=== PATIENT | male | born 1930 | race Caucasian/White ===

== ENCOUNTER 2016-06-12 10:58 | Emergency (ER) | payer OTHER ==
[~2016-06-12] VITALS: Ht 175.3 cm; Wt 71.8 kg
[~2016-06-12 10:58] MED LIST: ATOR10TA PO; CIPR500T4 PO; COUM3TAB PO; MACR100C PO; OMEP20TA39 PO; PHEN-426 PO
[2016-06-12 11:10] VITALS: BP 132/77; PULSE 63; RESP 16; TEMP 97.8; O2SAT 97
--- NOTE | 2016-06-12 11:28 | PD ---
HPI Chief Complaint: Laceration/Skin Injury Time Seen by Provider: 11:25 Travel History International Travel<30 days: No Contact w/Intl Traveler<30days: No Traveled to known affect area: No History of Present Illness HPI Patient comes emergency Department for evaluation of a laceration to his left third finger that occurred shortly prior to arrival. Patient states that he smashed it trying to change a belt on a lawnmower. Patient reports tetanus shot is up-to-date. Patient applied pressure prior to coming emergency department. Patient does report being on Coumadin. Patient reports minimal tenderness around the site of the laceration without radiation. Denies anything making it better or worse. PFSH Past Medical History Hx Anticoagulant Therapy: Yes (coumadin ) Arthritis: Yes (OSTEOARTHRITIS) Asthma: No Cardiac Catheterization: Yes (27 MAY 2007 *(DR LYNDON DOUGLAS)) Cardiovascular Problems: No High Cholesterol: Yes Chest Pain: Yes Congestive Heart Failure: No COPD: No Coronary Artery Disease: Yes Diminished Hearing: No Diverticulitis: Yes (2 BOUTS THIS YEAR) Gastrointestinal Disorders: Yes (DIVERTICULITIS, SCHATZKIS RING) GERD: Yes Genitourinary: Yes (UTI) Headaches: No Hypertension: Yes Musculoskeletal: No Neurologic: Yes (EPIDURAL HEMATOMA AT AGE 49) Reproductive: No Respiratory: Yes (2 COLLAPSED 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) Migraines: No Myocardial Infarction: Yes Seizures: No Ulcer: Yes (PEPTIC ULCER (DR MORAN)) Past Surgical History Abdominal Surgery: Yes (HERNIA REPAIR) Appendectomy: No Cardiac Surgery: Yes Cholecystectomy: No Coronary Artery Bypass Graft: Yes (28 MAY 2007 (DR SWARTZ) 4 vessel) Ear Surgery: No Endocrine Surgery: No Eye Surgery: No Genitourinary Surgery: No Gynecologic Surgery: No Hysterectomy: Yes (htn on meds, 4 vessels bypass) Neurologic Surgery: No Tonsillectomy: Yes Other Surgery: Yes (ESOPHAGEAL DILITATION WITH SCHOTZSKI'S RING (FOUND ALSO AN ULCER)) Social History Alcohol Use: No Tobacco Use: No Substance Use: No Allergies-Medications (Allergen,Severity, Reaction): Coded Allergies: Aspirin (Verified Allergy, Severe, PT REPORTS INTOLERANCE TO ASPIRIN, 06/12) 06/07/07: PER DARIUS PHAN, PT REPORTS INTOLERANCE TO ASPIRIN. Sulfa (Verified Allergy, Unknown, pt does not know why this is on his chart, 06/12/16) pt does not know why this is on his chart Reported Meds & Prescriptions Reported Meds & Active Scripts Active Reported Amlodipine (Amlodipine Besylate) 2.5 Mg Tab 2.5 Mg PO DAILY Atorvastatin (Atorvastatin Calcium) 80 Mg Tab 80 Mg PO HS Warfarin 3 Mg Tab 3 Mg PO DAILY Review of Systems Except as stated in HPI: all other systems reviewed are Neg Physical Exam Narrative GENERAL: Well-developed, well nourished, in no acute distress, and non-ill appearing. SKIN: Focused skin assessment warm and dry. Laceration left third finger palmar surface distal phalanx. No obvious foreign body noted. Neurovascularly intact distally. HEAD: Atraumatic. Normocephalic. EYES: Pupils equal and round. EOMI. No scleral icterus. No injection or drainage. ENT: No nasal bleeding or discharge. Mucous membranes pink and moist. NECK: Trachea midline. Supple. No nuclear rigidity. RESPIRATORY: No accessory muscle use. No respiratory distress. MUSCULOSKELETAL: No obvious deformities. No clubbing. No cyanosis. No edema. Full range of motion. NEUROLOGICAL: Awake and alert. No obvious cranial nerve deficits. Motor grossly within normal limits. Normal speech. PSYCHIATRIC: Appropriate mood and affect; insight and judgment normal. Data Data Last Documented VS Vital Signs Date Time Temp Pulse Resp B/P Pulse Ox O2 Delivery O2 Flow Rate FiO2 06/12/16 11:10 97.8 63 16 132/77 97 Orders Bupivacaine Pf 0.5% Inj (Marcaine Pf 0.5 (06/12/16 11:30) Finger ([id number]) (06/12/16 ) [facility] Medical Decision Making Medical Screen Exam Complete: Yes Emergency Medical Condition: Yes Differential Diagnosis Fracture, contusion, laceration, abrasion, other Narrative Course The patient suffered laceration to the finger. There was no evidence to suggest foreign bodies. Visual, tactile and radiographic exams were unremarkable without evidence of foreign body at this time. There was no evidence of neurovascular injury. The patient had a normal distal vascular exam, and had full normal motor and sensory exams. There was also no evidence or tendon injury , with normal distal full range of motions, flexion, extension, abduction, adduction and opponens. There was no evidence of local joint space involvement at this time. The patient was irrigated with copious sterile normal saline and primary repair was performed. Please see procedure note. The patient was given signs and symptom warnings for infection, such as increasing pain, redness, swelling, associated heat, pus or fever. The patient was warned of possible unseen foreign body and instructed to return immediately if signs or symptoms develop. The patient was given instructions for timely follow up. The patient agreed with plan of care. Patient in no obvious distress upon re-evaluation. All pertinent Radiology result(s) discussed with patient. Any questions/concerns in reference to patient diagnosis/condition discussed and clarified prior to patient's discharge. Reinforced sheer importance of close follow up with patient's primary physician or primary care clinic. Instructed patient to return to ED immediately, if symptoms return/worsen. Pt showed understanding of above instructions. Further instructions and recommendations were detailed in discharge paperwork. Pt ambulated without difficulty out of ED at discharge. Procedures Procedure Narrative LACERATION REPAIR LOCATION: Left third finger distal phalanx palmar surface LENGTH: Approximately next to some additional length NUMBER OF STITCHES/ARELY: 6 REPAIR: Verbal consent was obtained. The area of the laceration was cleaned and prepped. Digital block was performed using Marcaine without epi. The wound was copiously irrigated and explored without evidence of foreign body, bony involvement, ligament injury, tendon injury, or neurovascular injury. The wound was closed using 5-0 Vicryl. This was a single layer repair. A sterile dressing was applied by nurse. The patient was advised to keep the affected area as clean and dry as possible using soap and water. There were no complications. Patient tolerated the procedure well. Diagnosis Primary Impression: Laceration of finger of left hand Qualified Code: S61.219A - Laceration of finger of left hand, initial encounter Patient Instructions: Care For Your Absorbable Stitches (ED), Finger Laceration (ED), General Instructions Additional Instructions: Follow-up with your primary care physician next week for reevaluation. Keep wound dry and clean as possible using soap and water. Do not soak or submerge wound. Return to the emergency department if symptoms get worse. Disposition: 01 DISCHARGE HOME Condition: Stable Petros Byrne Jun 12, 2016 11:28
[2016-06-12] MEDS ORDERED: BUPIVACAINE HCL PF 0.5% 10 ML VIAL INFIL ONE (11:30)
[2016-06-12] MEDS ORDERED: AMLO2.5T PO (11:51)
[2016-06-12] MEDS ORDERED: WARF-58 PO (11:51)
[2016-06-12] MEDS ORDERED: ATOR1TAB18 PO (11:51)
--- NOTE | 2016-06-12 11:54 | RADHPO ---
EXAM DATE/TIME: 06/12/2016 11:34 [facility] COMPARISON: No previous studies available for comparison. INDICATIONS : Laceration to left third digit. MEDICAL HISTORY : Osteoarthritis. Hypercholesterolemia. Diverticulitis. Hypertension. Pneumothorax post CABG. Ulcer SURGICAL HISTORY : Tonsillectomy. CABG. EGD. Cardiac catheterization. Hernia repair. ENCOUNTER: Initial ACUITY: 1 day PAIN SCORE: 8/10 LOCATION: Left hand/ third digit FINDINGS: AP, lateral and oblique views of the left third digit were obtained as well as an AP view of the hand . This demonstrates soft tissue swelling and overlying artifact from a bandage. Degenerative changes are present in the distal interphalangeal joint with space loss, sclerosis and spurring. No radiopaqu e foreign body is identified. CONCLUSION: 1. Soft tissue swelling and overlying artifact from bandages. There is no definite radiopaque foreign body. 2. Degenerative joint change in the distal interphalangeal joint. Gonzalo Feliciano MD on June 12, 2016 at 11:51 Board Certified Radiologist. This report was verified electronically.
== END 2016-06-12 12:10 | disposition home or self-care (01) ==
LOC: PHEFT 10:58
DX: S61.213A Laceration without foreign body of left middle finger without damage to nail, initial encounter (principal); I10 Essential (primary) hypertension; W31.89XA Contact with other specified machinery, initial encounter; Y93.H9 Activity, other involving exterior property and land maintenance, building and construction; Y92.009 Unspecified place in unspecified non-institutional (private) residence as the place of occurrence of the external cause; Z79.01 Long term (current) use of anticoagulants
CPT/HCPCS: 12001; 73140

== ENCOUNTER 2016-11-02 10:32 | Emergency (ER) | payer OTHER ==
[~2016-11-02] VITALS: Ht 172.7 cm; Wt 70.0 kg
[~2016-11-02 10:32] MED LIST changes: +AMLO2.5T PO; -ATOR10TA PO; +ATOR1TAB18 PO; -CIPR500T4 PO; -COUM3TAB PO; -MACR100C PO; -OMEP20TA39 PO; -PHEN-426 PO; +WARF-58 PO
[2016-11-02 10:42] VITALS: BP 142/65; PULSE 87; RESP 16; TEMP 97.6; O2SAT 99
[2016-11-02] MEDS ORDERED: TAMS0.4C4 PO (11:00)
[2016-11-02] MEDS ORDERED: BECL0.07 INH (11:00)
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
[2016-11-02 11:32] LABS: BLOOD, URINE MOD (NEG); GLUCOSE,URINE NEG (NEG); KETONE, URINE NEG (NEG); NITRITE,URINE POS (NEG); PH, URINE 5.5 (5.0-8.5)
[2016-11-02 11:35] LABS: AUTOMATED NEUTROPHIL # 17.5 TH/MM3 (1.8-7.7); EOSINOPHIL % 0.2 % (0.0-4.0); HEMATOCRIT 39.2 % (39.0-51.0); LYMPH % 2.3 % (9.0-44.0); LYMPHOCYTE # 0.4 TH/MM3 (1.0-4.8); MEAN CELL VOLUME 89.3 FL (80.0-100.0); MEAN CORPUSCULAR HEMOGLOBIN 30.5 PG (27.0-34.0); MEAN CORPUSCULAR HGB CONC 34.1 % (32.0-36.0); MONO % 5.7 % (0.0-8.0); NEUT % 91.8 % (16.0-70.0); PLATELET COUNT 136 TH/MM3 (150-450); RED BLOOD COUNT 4.39 MIL/MM3 (4.50-5.90)
[2016-11-02 11:38] LABS: METHOD OF COLLECTION CATH; URINE COLOR YELLOW (YELLW/STRAW)
[2016-11-02 11:39] LABS: BACTERIA, URINE MANY /hpf; COMMENT (UR) CULTURE INDICATED; CULTURE IF INDICATED CULTURE INDICATED; POTASSIUM 4.1 MEQ/L (3.5-5.1); RBC, URINE 0-3 /hpf (0-3)
[2016-11-02 11:42] LABS: HEMO FLAGS DIFF FINAL
[2016-11-02 11:43] LABS: INTERNATIONAL NORMALIZED RATIO 1.7 RATIO; PROTHROMBIN TIME - PATIENT 19.4 SEC (9.8-11.6)
[2016-11-02 11:44] LABS: BICARBONATE 26.5 MEQ/L (21.0-32.0)
[2016-11-02] MEDS ORDERED: cefTRIAXone INJ 1,000 MG in SODIUM CHLORIDE 0.9% INJ 100 ML IV ONE (11:45)
[2016-11-02 12:31] VITALS: BP 114/56; PULSE 76; O2SAT 99
[2016-11-02] MEDS ORDERED: CEPH-460 PO (13:09)
== END 2016-11-02 13:22 | disposition home or self-care (01) ==
LOC: PHED 10:32
DX: N39.0 Urinary tract infection, site not specified (principal); B96.89 Other specified bacterial agents as the cause of diseases classified elsewhere; D72.829 Elevated white blood cell count, unspecified; Z79.01 Long term (current) use of anticoagulants
CPT/HCPCS: 80048; 81001; 83605; 85025; 85610; 87077; 87086; 87186; 96365; 99284; J0696

== ENCOUNTER 2017-06-05 17:38 | Observation (INO) | payer OTHER ==
[~2017-06-05] VITALS: Ht 172.7 cm; Wt 72.0 kg
[~2017-06-05 17:38] MED LIST changes: -ATOR1TAB18 PO; +ATOR80TA45 PO; +BECL0.07 INH; +CEPH-460 PO; +TAMS0.4C4 PO
[2017-06-05 17:46] VITALS: BP 169/73; PULSE 50; RESP 16; TEMP 97.6; O2SAT 96
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
--- NOTE | 2017-06-05 18:28 | RADRPT ---
EXAM DATE/TIME: 06/05/2017 18:01 [facility] COMPARISON: CHEST SINGLE AP, July 25, 2014, 16:43. INDICATIONS : Shortness of breath. MEDICAL HISTORY : Hypertension. Chronic obstructive pulmonary disease. SURGICAL HISTORY : CABG. Carotid stent. ENCOUNTER: Initial ACUITY: 1 day PAIN SCORE: 1/10 LOCATION: Bilateral chest FINDINGS: The patient is status post sternotomy. The heart size is normal. There is mild increased density at t he bases. The upper and mid lungs are clear. A significant effusion is not seen. CONCLUSION: Bibasilar areas of consolidation or atelectasis. Jabier Bowie MD on June 05, 2017 at 18:25 Board Certified Radiologist. This report was verified electronically.
[2017-06-05 18:36] LABS: AUTOMATED NEUTROPHIL # 5.7 TH/MM3 (1.8-7.7); BASOPHIL % 0.5 % (0.0-2.0); EOSINOPHIL # 0.2 TH/MM3 (0-0.4); EOSINOPHIL % 3.1 % (0.0-4.0); HEMATOCRIT 39.1 % (39.0-51.0); HEMOGLOBIN 13.3 GM/DL (13.0-17.0); LYMPH % 14.9 % (9.0-44.0); LYMPHOCYTE # 1.1 TH/MM3 (1.0-4.8); MEAN CELL VOLUME 90.3 FL (80.0-100.0); MEAN CORPUSCULAR HEMOGLOBIN 30.8 PG (27.0-34.0); MEAN CORPUSCULAR HGB CONC 34.1 % (32.0-36.0); MEAN PLATELET VOLUME 8.1 FL (7.0-11.0); MONO % 7.5 % (0.0-8.0); MONOCYTE # 0.6 TH/MM3 (0-0.9); PLATELET COUNT 195 TH/MM3 (150-450); RED BLOOD COUNT 4.33 MIL/MM3 (4.50-5.90); RED CELL DISTRIBUTION WIDTH 15.6 % (11.6-17.2); WHITE BLOOD COUNT 7.7 TH/MM3 (4.0-11.0)
--- NOTE | 2017-06-05 18:46 | RADRPT ---
EXAM DATE/TIME: 06/05/2017 18:12 [facility] COMPARISON: CT BRAIN W/O CONTRAST, July 25, 2014, 16:10. INDICATIONS : Syncopal episode. RADIATION DOSE: 37.73 CTDIvol (mGy) MEDICAL HISTORY : Cardiovascular disease. Hypertension. prior epidural hematoma SURGICAL HISTORY : CABG ENCOUNTER: Initial ACUITY: 1 day PAIN SCALE: 0/10 LOCATION: cranial TECHNIQUE: Multiple contiguous axial images were obtained of the head. Using automated exposure control and adj ustment of the mA and/or kV according to patient size, radiation dose was kept as low as reasonably a chievable to obtain optimal diagnostic quality images. DICOM format image data is available electro nically for review and comparison. FINDINGS: CEREBRUM: The ventricles are normal for age. No evidence of midline shift, mass lesion, hemorrhage or acute in farction. No extra-axial fluid collections are seen. POSTERIOR FOSSA: The cerebellum and brainstem are intact. The 4th ventricle is midline. The cerebellopontine angle i s unremarkable. EXTRACRANIAL: The visualized portion of the orbits is intact. SKULL: The calvaria is intact. No evidence of skull fracture. CONCLUSION: No acute disease. Jabier Bowie MD on June 05, 2017 at 18:43 Board Certified Radiologist. This report was verified electronically.
[2017-06-05 18:49] LABS: INTERNATIONAL NORMALIZED RATIO 2.3 RATIO; PROTHROMBIN TIME - PATIENT 23.4 SEC (9.8-11.6)
[2017-06-05 18:52] LABS: ALBUMIN 3.9 GM/DL (3.4-5.0); AST (GOT) 26 U/L (15-37); BLOOD UREA NITROGEN 25 MG/DL (7-18); CALCIUM 8.8 MG/DL (8.5-10.1); CHLORIDE 104 MEQ/L (98-107); CREATININE 1.71 MG/DL (0.60-1.30); GLOMERULAR FILTRATION RATE 38 ML/MIN (>89); GLUCOSE,RANDOM 94 MG/DL (74-106); SODIUM (NA) 137 MEQ/L (136-145)
[2017-06-05 18:53] LABS: ALT (GPT) 30 U/L (12-78)
[2017-06-05 19:03] LABS: ALKALINE PHOSPHATASE 139 U/L (45-117); TOTAL BILIRUBIN ADULT 0.5 MG/DL (0.2-1.0); TOTAL PROTEIN 7.4 GM/DL (6.4-8.2); TROPONIN I LESS THAN 0.02 NG/ML (0.02-0.05)
--- NOTE | 2017-06-05 19:30 | PD ---
Physical Exam Narrative I, Dr. Cunningham, have reviewed the advance practice practitioner's documentation and am in agreement, met with the patient face to face, made the diagnosis, and the medical decision making was done by me. *My assessment and Findings: Near syncope vs. Vertigo vs. subclavian steal syndrome 87yo M with PMH of CAD s/p CABG, right carotid endarterectomy, right subclavian steal syndrome here with episode of dizziness while sitting down watching TV and rewinding tape. Pt said he felt like he was going to pass out but didnt and felt the room spinning. Had some nausea. Episode lasted a few minutes. Denies any focal weakness or numbness. Had 2 more episode within this month but did not seek medical attention. Pt is suppose to follow up with vascular Dr. العراقي. Labs reviewed, no leukocytosis. H/H normal. Troponin negative. BUN/creatinine mildly elevated at 25/1.71. CXR showed bibasilar areas of consolidation or atelectasis. CT brain negative. This may be vertigo but pt is no longer dizzy and unable to do HINTS test. Pt also has significant cardiac risk factor for near syncope work up. Data Data Last Documented VS Vital Signs Date Time Temp Pulse Resp B/P (MAP) Pulse Ox O2 Delivery O2 Flow Rate FiO2 06/05/17 19:32 60 16 171/77 (108) 60 16 171/73 (105) 65 16 195/82 (119) 06/05/17 17:46 96 Room Air 06/05/17 17:46 97.6 Orders Orders Electrocardiogram (06/05/17 17:57) Complete Blood Count With Diff (06/05/17 17:57) Comprehensive Metabolic Panel (06/05/17 17:57) Ckmb (Isoenzyme) Profile (06/05/17 17:57) Troponin I (06/05/17 17:57) Prothrombin Time / Inr (Pt) (06/05/17 17:57) Act Partial Throm Time (Ptt) (06/05/17 17:57) Magnesium (Mg) (06/05/17 17:57) Thyroid Stimulating Hormone (06/05/17 17:57) Chest, Single Ap (06/05/17 17:57) Ct Brain W/O Iv Contrast(Rout) (06/05/17 17:57) Iv Access Insert/Monitor (06/05/17 17:57) Ecg Monitoring (06/05/17 17:57) Oximetry (06/05/17 17:57) Orthostatic Vital Signs (06/05/17 17:57) Admit Order (Ed Use Only) (06/05/17 20:16) Place In Observation (06/05/17 ) Vital Signs (Adult) Q4H (06/05/17 20:15) Activity Oob With Assistance (06/05/17 20:15) Skip Loader / Telemetry .CONTINUOUS (06/05/17 20:15) Intake + Output ELIZABETH.QSHIFT (06/05/17 20:15) Diet Heart Healthy (06/06/17 Breakfast) Sodium Chlor 0.9% 1000 Ml Inj (Ns 1000 M (06/05/17 20:15) Sodium Chloride 0.9% Flush (Ns Flush) (06/05/17 20:15) Sodium Chloride 0.9% Flush (Ns Flush) (06/05/17 21:00) Ondansetron Inj (Zofran Inj) (06/05/17 20:15) Comprehensive Metabolic Panel (06/06/17 06:00) Complete Blood Count With Diff (06/06/17 06:00) Troponin I (06/06/17 00:00) Troponin I (06/06/17 06:00) Prothrombin Time / Inr (Pt) (06/06/17 06:00) Pt Request For Service (06/05/17 20:15) Case Management Consult (06/05/17 20:15) Pharmacologic Contraindication (06/05/17 20:15) Acetaminophen (Tylenol) (06/05/17 20:15) Acetamin-Hydrocod 325-5 Mg ([place] 5-325 (06/05/17 20:15) Acetamin-Hydrocod 325-10 Mg ([place] 10-32 (06/05/17 20:15) Docusate Sodium-Senna (Sophia-Colace) (06/05/17 21:00) Magnesium Hydroxide Liq (Milk Of Magnesi (06/05/17 20:15) Sennosides (Senokot) (06/05/17 20:15) Bisacodyl Supp (Dulcolax Supp) (06/05/17 20:15) Lactulose Liq (Lactulose Liq) (06/05/17 20:15) Amlodipine (Norvasc) (06/06/17 09:00) Atorvastatin (Lipitor) (06/05/17 21:00) Tamsulosin (Flomax) (06/05/17 21:00) Warfarin (Coumadin) (06/06/17 16:00) Pantoprazole (Protonix) (06/06/17 09:00) Us Carotid Arteries Comp Bilat (06/05/17 ) Meclizine (Antivert) (06/05/17 20:30) Labs Laboratory Tests Test 06/05/17 18:10 White Blood Count 7.7 TH/MM3 Red Blood Count 4.33 MIL/MM3 Hemoglobin 13.3 GM/DL Hematocrit 39.1 % Mean Corpuscular Volume 90.3 FL Mean Corpuscular Hemoglobin 30.8 PG Mean Corpuscular Hemoglobin Concent 34.1 % Red Cell Distribution Width 15.6 % Platelet Count 195 TH/MM3 Mean Platelet Volume 8.1 FL Neutrophils (%) (Auto) 74.0 % Lymphocytes (%) (Auto) 14.9 % Monocytes (%) (Auto) 7.5 % Eosinophils (%) (Auto) 3.1 % Basophils (%) (Auto) 0.5 % Neutrophils # (Auto) 5.7 TH/MM3 Lymphocytes # (Auto) 1.1 TH/MM3 Monocytes # (Auto) 0.6 TH/MM3 Eosinophils # (Auto) 0.2 TH/MM3 Basophils # (Auto) 0.0 TH/MM3 CBC Comment DIFF FINAL Differential Comment Prothrombin Time 23.4 SEC Prothromb Time International Ratio 2.3 RATIO Activated Partial Thromboplast Time 29.6 SEC Blood Urea Nitrogen 25 MG/DL Creatinine 1.71 MG/DL Random Glucose 94 MG/DL Total Protein 7.4 GM/DL Albumin 3.9 GM/DL Calcium Level 8.8 MG/DL Magnesium Level 2.0 MG/DL Alkaline Phosphatase 139 U/L Aspartate Amino Transf (AST/SGOT) 26 U/L Alanine Aminotransferase (ALT/SGPT) 30 U/L Total Bilirubin 0.5 MG/DL Sodium Level 137 MEQ/L Potassium Level 4.4 MEQ/L Chloride Level 104 MEQ/L Carbon Dioxide Level 29.0 MEQ/L Anion Gap 4 MEQ/L Estimat Glomerular Filtration Rate 38 ML/MIN Total Creatine Kinase 100 U/L Troponin I LESS THAN 0.02 NG/ML Thyroid Stimulating Hormone 3rd Gen 2.500 uIU/ML MDM Supervised Visit with ZAIDA: Yes Interpretation(s) EKG: Sinus bradycardia at 57bpm. LAD. QTc 418ms. Diagnosis Primary Impression: Near syncope Admitting Information Admitting Physician Requests: Observation Scripts Amlodipine (Norvasc) 5 Mg Tab 5 MG PO DAILY for Blood Pressure Management, #30 TAB 0 Refills Prov: Imelda Mendoza PA-C 06/06/17 Annabel Cunningham DO Jun 05, 2017 19:30
[2017-06-05 19:32] VITALS: BP_SYST 171; BP_SYST 195; BP_DIAS 73; BP_DIAS 77; BP_DIAS 82; RESP 16
[2017-06-05] MEDS ORDERED: OMEP20TA93 PO (19:39)
[2017-06-05] MEDS ORDERED: SENNOSIDES 8.6 MG TAB PO PRN (20:15)
[2017-06-05] MEDS ORDERED: ACETAMINOPHEN/HYDROcodone 325 MG/5 MG TAB PO PRN (20:15)
[2017-06-05] MEDS ORDERED: ACETAMINOPHEN/HYDROcodone 325 MG/10 MG TAB PO PRN (20:15)
[2017-06-05] MEDS ORDERED: SODIUM CHLORIDE 0.9% FLUSH 10 ML FLUSH IV FLUSH PRN (20:15)
[2017-06-05] MEDS ORDERED: ACETAMINOPHEN 325 MG TAB PO PRN (20:15)
[2017-06-05] MEDS ORDERED: BISACODYL 10 MG SUPP RECTAL PRN (20:15)
[2017-06-05] MEDS ORDERED: MAGNESIUM HYDROXIDE SUSP 30 ML CUP PO PRN (20:15)
[2017-06-05] MEDS ORDERED: LACTULOSE SYRUP 20 GM/30 ML CUP PO PRN (20:15)
[2017-06-05] MEDS ORDERED: ONDANSETRON HCL 4 MG/2 ML VIAL IVP PRN (20:15)
--- NOTE | 2017-06-05 20:17 | HHI.HP ---
HPI Service [facility] Primary Care Physician Rusty Bhatt MD Admission Diagnosis pre syncope, dizziness, cardiac history Diagnoses: (1) Dizziness Diagnosis: Principal (2) Near syncope Diagnosis: Principal (3) Renal insufficiency Diagnosis: Principal (4) HTN (hypertension) Diagnosis: Principal Travel History International Travel<30 Days: No Contact w/Intl Traveler <30 Da: No Traveled to Known Affected Are: No History of Present Illness This is an 87-year-old male with a PMH of HTN, CAD, Hyperlipidemia, h/o CABG, h/ o Right CEA, on Coumadin, COPD and h/o Diverticulitis who was brought to the ER for dizziness and near syncopal episode. States symptoms have been ongoing for approx 1-2 months, has seen his PCP and [employer] (Dr. Villanueva) and was in the process of being worked up. Today, however symptoms more severe than usual , associated w/ nausea/vomiting and severe lightheadedness w/ near syncope. Denies chest pain, SOB, fever, chills or cough. On arrival, BP 169/73, HR 50, O2 sat 96% on RA, Afebrile. Orthostatic Vitals negative. CBC unremarkable. Chemistry essentially at baseline, creatinine 1.71, previously 1.50 on 2016. Troponin negative. INR 2.3. CXR bibasilar areas of consolidation or atelectasis. CT Head with no acute findings. Review of Systems Except as stated in HPI: all other systems reviewed are Neg ROS: 14 point review of systems otherwise negative. Past Family Social History Past Medical History PMH: HTN, CAD, Hyperlipidemia, h/o CABG, h/o Right CEA, on Coumadin, COPD and h /o Diverticulitis Past Surgical History PAST SURGICAL HISTORY: Hernia Repair, CABG, Right CEA, Esophageal Dilatation, Tonsillectomy Allergies: Coded Allergies: aspirin (Unverified Allergy, Severe, PT REPORTS INTOLERANCE TO ASPIRIN, ) 06/07/07: PER DARIUS PHAN, PT REPORTS INTOLERANCE TO ASPIRIN. Sulfa (Sulfonamide Antibiotics) (Unverified Allergy, Unknown, pt does not know why this is on his chart, 06/05/17) pt does not know why this is on his chart Family History PAST FAMILY HISTORY: Reviewed. No h/o DM or CAD Social History PAST SOCIAL HISTORY: Negative for alcohol, tobacco or drugs. Physical Exam Vital Signs Vital Signs Date Time Temp Pulse Resp B/P (MAP) Pulse Ox O2 Delivery O2 Flow Rate FiO2 06/05/17 19:32 60 16 171/77 (108) 60 16 171/73 (105) 65 16 195/82 (119) 06/05/17 17:46 96 Room Air 06/05/17 17:46 97.6 50 16 169/73 (105) 96 Physical Exam PE: GENERAL: Very pleasant elderly white male in no acute distress. at bedside. HEENT: PERRLA, EOMI. No scleral icterus or conjunctival pallor. No lid lag or facial droop. CARDIOVASCULAR: Regular rate and rhythm. No obvious murmurs to auscultation. No chest tenderness to palpation. RESPIRATORY: No obvious rhonchi or wheezing. Clear to auscultation. Breath sounds equal bilaterally. GASTROINTESTINAL: Abdomen soft, non-tender, nondistended. BS normal. MUSCULOSKELETAL: Extremities without clubbing, cyanosis, or edema. No obvious deformities. NEUROLOGICAL: Awake, alert and oriented x4. No focal neurologic deficits. Moving both upper and lower extremities spontaneously. Laboratory Laboratory Tests Test 06/05/17 18:10 White Blood Count 7.7 Red Blood Count 4.33 Hemoglobin 13.3 Hematocrit 39.1 Mean Corpuscular Volume 90.3 Mean Corpuscular Hemoglobin 30.8 Mean Corpuscular Hemoglobin Concent 34.1 Red Cell Distribution Width 15.6 Platelet Count 195 Mean Platelet Volume 8.1 Neutrophils (%) (Auto) 74.0 Lymphocytes (%) (Auto) 14.9 Monocytes (%) (Auto) 7.5 Eosinophils (%) (Auto) 3.1 Basophils (%) (Auto) 0.5 Neutrophils # (Auto) 5.7 Lymphocytes # (Auto) 1.1 Monocytes # (Auto) 0.6 Eosinophils # (Auto) 0.2 Basophils # (Auto) 0.0 CBC Comment DIFF FINAL Differential Comment Prothrombin Time 23.4 Prothromb Time International Ratio 2.3 Activated Partial Thromboplast Time 29.6 Blood Urea Nitrogen 25 Creatinine 1.71 Random Glucose 94 Total Protein 7.4 Albumin 3.9 Calcium Level 8.8 Magnesium Level 2.0 Alkaline Phosphatase 139 Aspartate Amino Transf (AST/SGOT) 26 Alanine Aminotransferase (ALT/SGPT) 30 Total Bilirubin 0.5 Sodium Level 137 Potassium Level 4.4 Chloride Level 104 Carbon Dioxide Level 29.0 Anion Gap 4 Estimat Glomerular Filtration Rate 38 Total Creatine Kinase 100 Troponin I LESS THAN 0.02 Thyroid Stimulating Hormone 3rd Gen 2.500 Result Diagram: 06/05/17180906/05/171809 Caprini VTE Risk Assessment Caprini VTE Risk Assessment: Mod/High Risk (score >= 2) Caprini Risk Assessment Model Point Value = 1 Point Value = 2 Point Value = 3 Point Value = 5 Age 41-60 Minor surgery BMI > 25 kg/m2 Swollen legs Varicose veins or History of unexplained or recurrent spontaneous Oral contraceptives or hormone replacement Sepsis (< 1 month) Serious lung disease, including pneumonia (< 1 month) Abnormal pulmonary function Acute myocardial infarction Congestive heart failure (< 1 month) History of inflammatory bowel disease Medical patient at bed rest Age 61-74 Arthroscopic surgery Major open surgery (> 45 min) Laparoscopic surgery (> 45 min) Malignancy Confined to bed (> 72 hours) Immobilizing plaster cast Central venous access Age >= 75 History of VTE Family history of VTE Factor V Leiden Prothrombin [id number] Lupus anticoagulant Anticardiolipin antibodies Elevated serum homocysteine Heparin-induced thrombocytopenia Other congenital or acquired thrombophilia Stroke (< 1 month) Elective arthroplasty Hip, pelvis, or leg fracture Acute spinal cord injury (< 1 month) Prophylaxis Regimen Total Risk Factor Score Risk Level Prophylaxis Regimen 0-1 Low Early ambulation 2 Moderate Order ONE of the following: *Sequential Compression Device (SCD) *Heparin 5000 units SQ BID 3-4 Higher Order ONE of the following medications: *Heparin 5000 units SQ TID *Enoxaparin/Lovenox 40 mg SQ daily (WT < 150 kg, CrCl > 30 mL/min) *Enoxaparin/Lovenox 30 mg SQ daily (WT < 150 kg, CrCl > 10-29 mL/min) *Enoxaparin/Lovenox 30 mg SQ BID (WT < 150 kg, CrCl > 30 mL/min) AND/OR *Sequential Compression Device (SCD) 5 or more Highest Order ONE of the following medications: *Heparin 5000 units SQ TID (Preferred with Epidurals) *Enoxaparin/Lovenox 40 mg SQ daily (WT < 150 kg, CrCl > 30 mL/min) *Enoxaparin/Lovenox 30 mg SQ daily (WT < 150 kg, CrCl > 10-29 mL/min) *Enoxaparin/Lovenox 30 mg SQ BID (WT < 150 kg, CrCl > 30 mL/min) AND *Sequential Compression Device (SCD) Assessment and Plan Problem List: (1) Dizziness ICD Code: R42 - Dizziness and giddiness Status: Acute (2) Near syncope ICD Code: R55 - Syncope and collapse Status: Acute (3) Renal insufficiency ICD Code: N28.9 - Disorder of kidney and ureter, unspecified (4) HTN (hypertension) ICD Code: I10 - Essential (primary) hypertension Assessment and Plan A/P: 1. Dizziness: c/o dizziness for approx 1-2 months, today w/ associated nausea/ vomiting and near syncope. CT Head negative for acute findings, images reviewed by me. Admit for Observation, Telemetry, check serial cardiac enzymes to eval for possible underlying ischemia. Check Carotid US to eval for possible stenosis. Orthostatic vitals negative. Meclizine prn. Monitor I/O. 2. Near Syncope: secondary to above, trop negative so far, IVF for hydration. Check U/a to eval for possible UTI. 3. Renal Insufficiency: Creatinine 1.71, previously 1.50 on 11/02/2016. UA pending. IVF for hydration, repeat labs in a.m. 4. HTN: Uncontrolled. Monitor BP, resume home medications, antihypertensives as needed. 5. DVT Prophylaxis: On Coumadin, INR therapeutic at 2.3, will resume 6. Social work for d/c planning as needed. 7. Case discussed w/ ER physician at length, labs/records/imaging reviewed by me. Adri Stokes MD Jun 05, 2017 20:17
[2017-06-05] MEDS ORDERED: MECLIZINE HCL 25 MG TAB PO PRN (20:30)
[2017-06-05] MEDS: SODIUM CHLORIDE 0.9% FLUSH 10 ML FLUSH IV FLUSH SCH (21:00)
[2017-06-05] MEDS ORDERED: TAMSULOSIN HCL 0.4 MG CAP PO SCH (21:00)
[2017-06-05] MEDS ORDERED: ATORVASTATIN 80 MG TAB PO SCH (21:00)
[2017-06-05] MEDS: DOCUSATE SODIUM 50 MG/SENNA 8.6 MG TAB PO SCH (21:03)
[2017-06-05] MEDS: SODIUM CHLOR 0.9% 1000 ML INJ 1,000 ML IV SCH (21:04)
[2017-06-05 21:12] VITALS: BP 169/77; PULSE 80; RESP 16; O2SAT 95
[2017-06-05 23:39] VITALS: BP 123/57; PULSE 55; RESP 18; TEMP 97.6; O2SAT 98
--- NOTE | 2017-06-05 23:47 | RADRPT ---
EXAM DATE/TIME: 06/05/2017 22:58 [facility] COMPARISON: No previous studies available for comparison. EXTERNAL COMPARISON : [facility], CTA CAROTID ARTERIES, July 31, 2016[facility], CTA CAROTID ARTERIES, Au 2014. INDICATIONS : Transient ischemic attack. MEDICAL HISTORY : Myocardial infarction. Hypercholesterolemia. Diverticulitis. Epidural hematoma. Coronary artery disea se. Anticoagulant therapy. Hypertension. Ulcer. GERD. Osteoarthritis. Blood transfusion. COPD. SURGICAL HISTORY : CABG. Carotid endarterectomy. Tonsillectomy. Hernia repair. Esophageal dilitation. ENCOUNTER: Initial ACUITY: 1 day PAIN SCORE: 0/10 LOCATION: Bilateral neck PEAK SYSTOLIC VELOCITIES (cm/sec): ICA/CCA RATIO: Right: 0.87 Left: 1.37 ICA: Right: 107 Left: 137 CCA: Right: 122 Left: 100 ECA: Right: 143 Left: 124 VERTEBRAL: Right: 48 retrograde Left: 134 antegrade Elevated flow velocities and ICA/CCA ratios have been found to correlate with increased degrees of vessel stenosis, calculated as percentage of diameter relative to a normal segment of distal ICA/CCA FINDINGS: RIGHT CAROTID: Minimal scattered noncalcified atheromatous plaque throughout the common carotid and proximal ICA. No luminal narrowing by grayscale analysis. ICA waveform is normal. LEFT CAROTID: Scattered calcified and noncalcified atheromatous plaque throughout the common carotid and proximal I CA. No luminal narrowing by grayscale analysis. ICA waveform is normal. VERTEBRAL ARTERIES: Retrograde flow within the right vertebral artery. Antegrade flow within the left vertebral artery. MISCELLANEOUS: None. CONCLUSION: 1. Mild scattered atherosclerotic plaque without stenosis. 2. Retrograde flow involving the right vertebral artery with antegrade flow involving the left verteb ral artery. This can be seen in right subclavian artery stenosis. Phong Lomeli Jr., MD on June 05, 2017 at 23:42 Board Certified Radiologist. This report was verified electronically.
[2017-06-06 05:02] VITALS: BP_SYST 126; BP_SYST 146; BP_DIAS 65; BP_DIAS 90; PULSE 102; PULSE 55; RESP 18; RESP 20; TEMP 97.5; TEMP 98.5; O2SAT 92; O2SAT 98
[2017-06-06] MEDS: SODIUM CHLOR 0.9% 1000 ML INJ 1,000 ML IV SCH ×2 (05:19→16:11)
[2017-06-06 08:00] VITALS: BP 148/60; PULSE 55; RESP 18; TEMP 97.4; O2SAT 98
[2017-06-06] MEDS ORDERED: PANTOPRAZOLE SOD 20 MG DELAYED RELEASE TAB PO SCH (09:00)
[2017-06-06] MEDS ORDERED: amLODIPine BESYLATE 5 MG TAB PO SCH (09:00)
[2017-06-06] MEDS: DOCUSATE SODIUM 50 MG/SENNA 8.6 MG TAB PO SCH (09:05)
[2017-06-06] MEDS: SODIUM CHLORIDE 0.9% FLUSH 10 ML FLUSH IV FLUSH SCH (09:07)
[2017-06-06 09:38] LABS: AUTOMATED NEUTROPHIL # 4.7 TH/MM3 (1.8-7.7); BASOPHIL % 0.3 % (0.0-2.0); EOSINOPHIL # 0.2 TH/MM3 (0-0.4); EOSINOPHIL % 3.5 % (0.0-4.0); HEMATOCRIT 40.3 % (39.0-51.0); HEMOGLOBIN 13.5 GM/DL (13.0-17.0); LYMPH % 17.2 % (9.0-44.0); LYMPHOCYTE # 1.1 TH/MM3 (1.0-4.8); MEAN CELL VOLUME 89.3 FL (80.0-100.0); MEAN CORPUSCULAR HGB CONC 33.6 % (32.0-36.0); MEAN PLATELET VOLUME 8.3 FL (7.0-11.0); MONO % 7.3 % (0.0-8.0); MONOCYTE # 0.5 TH/MM3 (0-0.9); NEUT % 71.7 % (16.0-70.0); PLATELET COUNT 209 TH/MM3 (150-450); RED BLOOD COUNT 4.52 MIL/MM3 (4.50-5.90); RED CELL DISTRIBUTION WIDTH 15.5 % (11.6-17.2); WHITE BLOOD COUNT 6.6 TH/MM3 (4.0-11.0)
[2017-06-06 09:49] LABS: INTERNATIONAL NORMALIZED RATIO 2.1 RATIO; PROTHROMBIN TIME - PATIENT 21.3 SEC (9.8-11.6)
[2017-06-06 09:55] LABS: ALBUMIN 3.6 GM/DL (3.4-5.0); AST (GOT) 25 U/L (15-37); BLOOD UREA NITROGEN 23 MG/DL (7-18); CALCIUM 8.7 MG/DL (8.5-10.1); CHLORIDE 107 MEQ/L (98-107); CREATININE 1.34 MG/DL (0.60-1.30); GLOMERULAR FILTRATION RATE 50 ML/MIN (>89); GLUCOSE,RANDOM 88 MG/DL (74-106); SODIUM (NA) 140 MEQ/L (136-145)
[2017-06-06 09:56] LABS: ALT (GPT) 30 U/L (12-78)
[2017-06-06 10:00] LABS: ALKALINE PHOSPHATASE 129 U/L (45-117); TOTAL BILIRUBIN ADULT 0.7 MG/DL (0.2-1.0); TOTAL PROTEIN 6.9 GM/DL (6.4-8.2); TROPONIN I LESS THAN 0.02 NG/ML (0.02-0.05)
--- NOTE | 2017-06-06 12:42 | HHI.PR ---
Subjective Remarks in no acute distress. resting comfortably. no chest pain or sob. no dizziness. Objective Vitals Vital Signs Date Time Temp Pulse Resp B/P (MAP) Pulse Ox O2 Delivery O2 Flow Rate FiO2 06/06/17 08:00 55 06/06/17 08:00 97.4 55 18 148/60 (89) 98 06/06/17 05:02 97.5 55 18 126/65 (85) 98 06/05/17 23:39 97.6 55 18 123/57 (79) 98 06/05/17 21:12 80 16 169/77 (107) 95 Room Air 06/05/17 19:32 60 16 171/77 (108) 60 16 171/73 (105) 65 16 195/82 (119) 06/05/17 17:46 96 Room Air 06/05/17 17:46 97.6 50 16 169/73 (105) 96 Result Diagram: 06/06/17 0826 06/06/17 0826 Imaging Last Impressions Head CT 06/05/171756 Signed Impressions: Service Date/Time: Monday, June 05, 2017 18:12 - CONCLUSION: No acute disease. Jabier Bowie MD Chest X-Ray 06/05/171756 Signed Impressions: Service Date/Time: Monday, June 05, 2017 18:01 - CONCLUSION: Bibasilar areas of consolidation or atelectasis. Jabier Bowie MD Carotid Artery Ultrasound 06/05/17 0000 Signed Impressions: Service Date/Time: Monday, June 05, 2017 22:58 - CONCLUSION: 1. Mild scattered atherosclerotic plaque without stenosis. 2. Retrograde flow involving the right vertebral artery with antegrade flow involving the left vertebral artery. This can be seen in right subclavian artery stenosis. Phong Lomeli Jr., MD Objective Remarks GENERAL: This is a well-nourished, well-developed patient, in no apparent distress. CARDIOVASCULAR: Regular rate and regular rhythm without murmurs, gallops, or rubs. RESPIRATORY: Clear to auscultation. Breath sounds equal bilaterally. No wheezes , rales, or rhonchi. GASTROINTESTINAL: Abdomen soft, non-tender, nondistended. Normal, active bowel sounds MUSCULOSKELETAL: Extremities without clubbing, cyanosis, or edema. NEURO: Alert & Oriented x4 to person, place, time, situation. Moves all ext x4 Medications and IVs Inpatient Medications Acetaminophen (Tylenol) 650 mg Q6H PRN PO FEVER/PAIN SCALE 1 TO 2; Start at 20:15 Acetaminophen/ Hydrocodone Bitart ([place] 5-325 Mg) 1 tab Q4H PRN PO PAIN SCALE 3 TO 5; Start 06/05/17 at 20:15 Acetaminophen/ Hydrocodone Bitart ([place] 10-325 Mg) 1 tab Q4H PRN PO PAIN SCALE 6 TO 10; Start 06/05/17 at 20:15 Amlodipine Besylate (Norvasc) 2.5 mg DAILY PO Last administered on 06/06/17at 09 :07; Start 06/06/17 at 09:00 Atorvastatin Calcium (Lipitor) 80 mg HS PO Last administered on 06/05/17at 21:03 ; Start 06/05/17 at 21:00 Bisacodyl (Dulcolax Supp) 10 mg DAILY PRN RECTAL SEVERE CONSITIPATION; Start at 20:15 Lactulose (Lactulose Liq) 30 ml DAILY PRN PO SEVERE CONSITIPATION; Start at 20:15 Magnesium Hydroxide (Milk Of Magnesia Liq) 30 ml Q12H PRN PO Mild constipation ; Start 06/05/17 at 20:15 Meclizine HCl (Antivert) 25 mg Q8H PRN PO VERTIGO; Start 06/05/17 at 20:30 Ondansetron HCl (Zofran Inj) 4 mg Q6H PRN IVP NAUSEA OR VOMITING; Start at 20:15 Pantoprazole Sodium (Protonix) 20 mg DAILY PO Last administered on 06/06/17at 09 :08; Start 06/06/17 at 09:00 Patient Medication Teaching (Coumadin Booklet) 1 ONCE ONCE OTHER ; Start at 16:00; Stop 06/06/17 at 16:01 Senna/Docusate Sodium (Sophia-Colace) 1 tab BID PO Last administered on at 21:03; Start 06/05/17 at 21:00 Sennosides (Senokot) 17.2 mg Q12H PRN PO Moderate constipation; Start 06/05/17 at 20:15 Sodium Chloride (NS Flush) 2 ml BID IV FLUSH Last administered on 06/06/17at 09: 07; Start 06/05/17 at 21:00 Tamsulosin HCl (Flomax) 0.4 mg HS PO Last administered on 06/05/17at 21:03; Start 06/05/17 at 21:00 Warfarin Sodium (Coumadin) 3 mg DAILY@1600 PO ; Start 06/06/17 at 16:00 A/P Problem List: (1) Dizziness ICD Code: R42 - Dizziness and giddiness Status: Acute (2) Near syncope ICD Code: R55 - Syncope and collapse Status: Acute (3) Renal insufficiency ICD Code: N28.9 - Disorder of kidney and ureter, unspecified (4) HTN (hypertension) ICD Code: I10 - Essential (primary) hypertension Assessment and Plan 1. Dizziness: c/o dizziness for approx 1-2 months, today w/ associated nausea/ vomiting and near syncope. CT Head negative for acute findings. carotid doppler with subclavian artery stenosis; has an appointment with in June. echo and cardiology evaluation pending. 2. acute kidney injury/ dehydration- improved on IV fluid. 3. HTN: Uncontrolled. Monitor BP, resume home medications, antihypertensives as needed. 4. DVT Prophylaxis: On Coumadin, INR therapeutic at 2.3, will resume Discharge Planning pending echo and cardiology evaluation. Juanita Brown MD Jun 06, 2017 12:42
--- NOTE | 2017-06-06 12:43 | HHI.DCPOC ---
Discharge Care Plan Diagnosis: (1) Dehydration (2) Dizziness (3) HTN (hypertension) (4) Stenosis of right subclavian artery (5) Renal insufficiency Goals to Promote Your Health * To prevent worsening of your condition and complications * To maintain your health at the optimal level Directions to Meet Your Goals Take your medications as prescribed Follow your dietary instruction Follow activity as directed Keep your appointments as scheduled Take your immunizations and boosters as scheduled If your symptoms worsen call your PCP, if no PCP go to Urgent Care Center or Emergency Room Smoking is Dangerous to Your Health. Avoid second hand smoke Call the 24-hour hour crisis hotline for domestic abuse at Imelda Mendoza PA-C Jun 06, 2017 12:42
--- NOTE | 2017-06-06 13:39 | ECHRPT ---
Indication: HEART FAILURE CONCLUSIONS Normal left ventricular size. Mild concentric left ventricular hypertrophy. The left ventricular systolic function is normal with an estimated ejection fraction in the range of 55-60%. There is abnormal (paradoxical) septal motion consistent with postoperative state. The left atrial size is mildly dilated. The right atrial size is mildly dilated. [id number]-[id number] mitral valve regurgitation. Aortic valve sclerosis is present. Trace aortic valve regurgitation. There is mild to moderate tricuspid regurgitation. The estimated pulmonary arterial pressure is 35.2 mmHg. BP: 126 / 65 HR: 55 Rhythm: Sinus MEASUREMENTS (Male / Female) Normal Values Technical Quality:Fair 2D ECHO LV Diastolic Diameter PLAX 4.0 cm 4.2 - 5.9 / 3.9 - 5.3 cm LV Systolic Diameter PLAX 3.0 cm IVS Diastolic Thickness 1.3 cm 0.6 - 1.0 / 0.6 - 0.9 cm LVPW Diastolic Thickness 1.3 cm 0.6 - 1.0 / 0.6 - 0.9 cm LV Relative Wall Thickness 0.7 RV Internal Dim ED PLAX 3.0 cm LVOT Diameter 2.2 cm Aortic Root Diameter 3.6 cm LA Systolic Diameter LX 3.7 cm 3.0 - 4.0 / 2.7 - 3.8 cm M-MODE AV Cusp Separation MM 1.7 cm DOPPLER AV Peak Velocity 154.0 cm/s AV Peak Gradient 9.5 mmHg AV Mean Gradient 5.0 mmHg AV Velocity Time Integral 37.6 cm LVOT Peak Velocity 114.6 cm/s LVOT Peak Gradient 5.3 mmHg LVOT Velocity Time Integral 15.4 cm AV Area Cont Eq vti 1.6 cm AV Area Cont Eq pk 2.8 cm Mitral E Point Velocity 68.1 cm/s Mitral A Point Velocity 58.7 cm/s Mitral E to A Ratio 1.2 LV E' Lateral Velocity 10.1 cm/s Mitral E to LV E' Lateral Ratio 6.7 LV E' Septal Velocity 4.4 cm/s Mitral E to LV E' Septal Ratio 15.5 TR Peak Velocity 251.0 cm/s TR Peak Gradient 25.2 mmHg Right Atrial Pressure 10.0 mmHg Pulmonary Artery Systolic Pressu 35.2 mmHg Right Ventricular Systolic Press 35.2 mmHg PV Peak Velocity 45.1 cm/s PV Peak Gradient 0.8 mmHg FINDINGS LEFT VENTRICLE Normal left ventricular size. Mild concentric left ventricular hypertrophy. The left ventricular systolic function is normal with an estimated ejection fraction in the range of 55-60%. There is abnormal (paradoxical) septal motion consistent with postoperative state. RIGHT VENTRICLE Normal right ventricular size and systolic function. LEFT ATRIUM The left atrial size is mildly dilated. RIGHT ATRIUM The right atrial size is mildly dilated. ATRIAL SEPTUM No atrial level shunt is demonstrated by color flow Doppler interrogation. AORTA The aortic root and proximal ascending aorta are not well visualized. MITRAL VALVE [id number] mitral valve regurgitation. AORTIC VALVE Aortic valve sclerosis is present. Trace aortic valve regurgitation. TRICUSPID VALVE There is mild to moderate tricuspid regurgitation. The estimated pulmonary arterial pressure is 35.2 mmHg. PULMONARY VALVE The pulmonary valve is not well visualized. VESSELS The inferior vena cava is normal in size. PERICARDIUM No pericardial effusion. Jose Hooper MD (Electronically Signed) Final Date:06 June 2017 13:38
[2017-06-06] MEDS ORDERED: WARFARIN SOD 3 MG TAB PO SCH ×2 (16:00)
--- NOTE | 2017-06-06 16:39 | MB ---
cc: Jose Hooper MD, Hanscy MD Minouei, Mohammadreza MD Chudasama,Rusty Trejo MD DATE: 06/06/2017 REASON FOR CONSULTATION: Dizziness and syncope. HISTORY OF PRESENT ILLNESS: Mr. 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 All workup was negative. The patient seen by primary doctor, recent evaluation again by Dr. العراقي. The patient yesterday was cutting the grass. Subsequently, he began with dizziness. -- was called. The patient was transported to the emergency room. His blood pressure now evaluated was 200. Since then, the patient is doing well. The chart was reviewed. The patient was evaluated. Case discussed with he and his . ALLERGIES: ASPIRIN AND SULFA. SOCIAL HISTORY: Negative for smoking and drinking. FAMILY HISTORY: Noncontributory to his current medical condition. MEDICATIONS: Currently, the patient is on [place]. He is on Lipitor 80 mg a day, Norvasc 2.5 mg a day. He is on magnesium and Antivert 25 mg q.8 hours, zofran p.r.n, Protonix 20 mg a day, Flomax 0.4 mg a day, coumadin as directed. REVIEW OF SYSTEMS: Currently, the patient referred feeling better. No chest pain, no chest discomfort. No fever. PHYSICAL EXAMINATION: GENERAL: Alert, fully oriented. VITAL SIGNS: Blood pressure 126/65, yesterday at 7 p.m. blood pressure was 171/73, pulse 55, respiratory rate 18. LUNGS: Ventilated. CARDIOVASCULAR: S1, S2. No gallop. No murmur. NECK: There is no carotid bruit. ABDOMEN: Soft. No mass. EXTREMITIES: No edema. CARDIOLOGY STUDIES: Electrocardiogram indicates sinus rhythm. No acute ST and T-wave changes. LABORATORY DATA: Hemoglobin 13.5, white blood cell 6.6. Potassium 4.3, creatinine 1.34. Troponin 0.02. INR 2.1. ASSESSMENT AND RECOMMENDATIONS: Mr. Fischer is currently stable. He has no dizziness. His blood pressure was high on admission. That has come down rapidly. There is some blood pressure in the 170s. I do not think there is enough disease on the right subclavian artery for any intervention. The gentleman before hospitalization was working in his yard and doing strenuous activity. He apparently was dehydrated also. My recommendation at this point is observation. The gentleman can be discharged home today. He will be followed as an outpatient by Dr. Villanueva or Dr. العراقي or both if necessary. I am going to increase the Norvasc to 5 mg a day. I will see him on a p.r.n. basis. MD MADONNA Singh/ , 04:14 PM , 04:38 PM
--- NOTE | 2017-06-06 16:58 | EKG ---
Date Performed: 06/05/2017 Time Performed: 17:55:55 PTAGE: 87 years EKG: SINUS BRADYCARDIA POSSIBLE RIGHT VENTRICULAR CONDUCTION DELAY BORDERLINE ECG Since the PREVIOUS TRACING , no significant change noted PREVIOUS TRACIN07/25/2014 15.32 DOCTOR: Hiro Villanueva Interpretating Date/Time 06/06/2017 16:54:50
[2017-06-06] MEDS ORDERED: AMLO5 PO (17:04)
== END 2017-06-06 18:52 | disposition home or self-care (01) ==
LOC: NEPE 17:38 → NEDA 20:18 → NEPHCDU 21:29
PROVIDERS: ADMIT Internal Medicine; ATTEND Internal Medicine
DX: R42 Dizziness and giddiness (principal); R55 Syncope and collapse; N28.9 Disorder of kidney and ureter, unspecified; R11.2 Nausea with vomiting, unspecified; I25.10 Atherosclerotic heart disease of native coronary artery without angina pectoris; I10 Essential (primary) hypertension; I25.2 Old myocardial infarction; E78.00 Pure hypercholesterolemia, unspecified; J44.9 Chronic obstructive pulmonary disease, unspecified; R91.8 Other nonspecific abnormal finding of lung field; I77.1 Stricture of artery; N17.9 Acute kidney failure, unspecified; E86.0 Dehydration; I70.8 Atherosclerosis of other arteries; R00.1 Bradycardia, unspecified; K21.9 Gastro-esophageal reflux disease without esophagitis; M19.90 Unspecified osteoarthritis, unspecified site; Z79.01 Long term (current) use of anticoagulants; Z95.1 Presence of aortocoronary bypass graft; Z79.899 Other long term (current) drug therapy
CPT/HCPCS: 70450; 71045; 80053; 82550; 83735; 84443; 84484; 85025; 85610; 85730; 93005; 93306; 93880; 96360; 97161; 99285; G0378; G8987; G8988; J7030